=== PATIENT | female | born 1940 | race Caucasian/White ===

== ENCOUNTER 2017-06-28 21:26 | Inpatient (IN) | payer OTHER ==
[~2017-06-28] VITALS: Ht 165.1 cm; Wt 102.1 kg
[2017-06-28] MEDS ORDERED: DEPAKOTE ER250 MG (21:36)
[2017-07-01] MEDS ORDERED: METRONIDAZ500 MG/100 IV (11:06)
[2017-07-01] MEDS ORDERED: SULFAMETHOXAZOLE5 M1 IV (11:06)
== END 2017-07-02 08:05 | disposition home or self-care (01) | DRG 690 ==
LOC: ER 21:26 → SEC-K 06-29 10:16 → MEDJ 07-01 14:41 → SEC-K 07-01 14:41
PROC: B246ZZZ Ultrasonography of Right and Left Heart (ICD-10-PCS; principal; 2017-06-30)
PROC: BW21Y0Z Computerized Tomography (CT Scan) of Abdomen and Pelvis using Other Contrast, Unenhanced and Enhanced (ICD-10-PCS; 2017-06-30)
DX: N39.0 Urinary tract infection, site not specified (principal); R63.0 Anorexia; K52.89 Other specified noninfective gastroenteritis and colitis; E86.0 Dehydration; L89.152 Pressure ulcer of sacral region, stage 2